=== PATIENT | male | born 1950 | race Caucasian/White ===

== ENCOUNTER 2024-12-18 08:32 | Emergency (ER) | payer MEDICARE, BC, SELFPAY ==
[2024-12-18 08:39] VITALS: BP 204/87
[2024-12-18 10:10] VITALS: BP 172/86
--- NOTE | 2024-12-18 17:34 | ED.GENMED ---
History of Present Illness
General
Chief Complaint: Back Pain
Source: patient
Exam Limitations: none
Time Seen by Provider: 12/18/24 09:08
Nursing documentation reviewed up to this point in time: agreed with
History of Present Illness
History of Present Illness:
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 Denies loss of bowel or bladder control. Denies fever/chills.
Denies abdominal pain. Denies weakness in extremities. 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 Otherwise, no recollection of overuse or injury.
Motrin was helping until last p.m. when he woke up in middle of night with the pain after taking Motrin at 10:30 p.m. and 2:30 a.m.
Past History
Past History
ED Past Medical History: Other (GERD, hypercholesterolemia, hypertension, prostate cancer)
Social History
Tobacco: Non-smoker
Personal:
Review of Systems
Review of Systems
Allergies reviewed?: Yes
All Other Systems: ROS reviewed and negative except as documented in HPI and ROS
Constitutional: Denies fever or chills
ABD/GI: Denies abdominal pain
: Denies dysuria, frequency, incontinence or difficulty voiding
Musculoskeletal: Reports back pain (right lower back); Denies neck pain
Skin: Reports no symptoms
Neurological: Reports other (low back pain radiates around right upper thigh); Denies weakness or numbness
Phy Exam
Physical Exam
Physical Exam:
GENERAL: No acute distress. A&Ox3.
CONSTITUTIONAL: Afebrile.
EYES: clear, conjunctivae normal
ENMT: moist mucus membranes
RESPIRATORY: Regular respirations, nonlabored, lungs clear.
CARDIOVASCULAR: Regular rate and rhythm, no murmurs, no rubs.
GI: Soft, nontender, normal BS
MUSCULOSKELETAL: No spinal bony tenderness. Mild pain with palpation mid right buttock. Pain mildly aggravated with adduction and abduction with right knee flexed. Negative bilateral straight leg raise. Moves with ease. Well perfused.
SKIN: Warm, dry, pink
PSYCH: Normal mood and affect. Well kept, interactive and appropriate
NEUROLOGIC: Awake, alert and oriented. Strength equal throughout. No focal neurological deficits
Course
Orders/Labs/Results
Orders:
Orders
12/18/24 09:51
Dexamethasone [Decadron] 10 mg PO NOW STA
Vital Signs
Initial and Last Documented VS:
Initial Vital Signs
Temp Pulse Resp BP Pulse Ox
98.2 F 57 16 204/87 98
12/18/24 08:39 12/18/24 08:39 12/18/24 08:39 12/18/24 08:39 12/18/24 08:39
Last Documented Vital Signs
Temp Pulse Resp BP Pulse Ox
98.2 F 57 17 172/86 97
12/18/24 08:39 12/18/24 10:10 12/18/24 10:10 12/18/24 10:10 12/18/24 10:10
MDM/Problems Addressed
Differential Diagnosis Includes:
low back strain, sciatica, discitis
MDM/Problems Addressed:
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 Denies loss of bowel or bladder control. Denies fever/chills.
Denies abdominal pain. Denies weakness in extremities. 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 Otherwise, no recollection of overuse or injury.
Motrin was helping until last p.m. when he woke up in middle of night with the pain after taking Motrin at 10:30 p.m. and 2:30 a.m.
Pain now 02/28.
Pt in no distress, is actually moving around very well.
No infectious symptoms
Pt OOB and ambulating well, no spinal bony tenderness, no neuro deficits, no indication for imaging
Plan: Steroid taper, muscle relaxant and f/u with PCP
At discharge, patient ambulated out with normal gait.
*Critical Care Note
Total Time (30-74mins, 75-104mins- exclusive of procedures): Not Applicable
ED Attending Note
-
Portions of this chart may have been created with voice recognition software.� Occasional wrong word or��sound alike� substitutions may have occurred due to the inherent limitations of voice recognition software.
Discharge Plan
Departure
Patient Disposition: Home (Routine Discharge)
Date of Disposition: 12/18/24
Time of Disposition: 09:52
Patient with high blood pressure during this ER visit?: Yes
Condition: Good
Discharge Problem:
Acute right-sided low back pain with right-sided sciatica
Instructions: Sciatica (DC)
Prescriptions:
New
prednisone 10 mg Tablet
See Rx Instructions .ROUTE .COMPLEX Qty: 30 0RF
Rx Instructions:
Take By Mouth:
40 mg daily x3 days, 30 mg daily x3 days,
20 mg daily x3 days, 10 mg daily x3 days.
cyclobenzaprine 10 mg tablet
10 mg PO BID MDD back pain/spasm PRN (Reason: back pain/spasm) Qty: 14 0RF
No Action
Atorvastatin
10 mg PO HS
latanoprost 1 DROP drops
1 drp BOTH EYES HS
Patient Comments:
0.005%
famotidine 40 MG tablet
40 mg PO HS
ibuprofen 200 MG tablet
400 mg PO HS
Metoprolol Tartrate
12.5 mg PO BID
Patient Comments:
half of a 25mg tab
Tamsulosin
0.8 mg PO DAILY
Patient Comments:
two 0.4mg tabs half hour after evening meal
ofloxacin 1 DROP drops
5 drp ophthalmic (eye) BID
triamcinolone acetonide [Nasacort] 10.8 ML aerosol,spray
10.8 ml NS DAILY
loratadine 10 MG capsule
10 mg PO DAILY
meclizine 25 MG tablet
25 mg PO TID PRN (Reason: dizziness) Qty: 20 0RF
ondansetron 4 MG tablet,disintegrating
4 mg PO TIDPRN PRN (Reason: nausea/vomiting) Qty: 14 0RF
Referrals:
Cristhian Reed MD [Family Provider] - As needed
Activity Restrictions/Additional Instructions:
As we discussed, I sent a prescription to your pharmacy for Flexeril(cyclobenzaprine) muscle relaxant. It can make you sleepy and slow the reflexes so do not drive or operate any machinery within 8 hours of taking it.
I also sent a prescription to your pharmacy for a prednisone taper, started tomorrow as you were given a dose of steroid here today
See your family doctor or your orthopedic doctor if your back is not much improved within the next week.
Interventions
Interventions:
*Risk Screen - Suicide Last Done: 12/18/24 08:39
*General Assessment Last Done: 12/18/24 10:15
*Neglect/Abuse Screening Last Done: 12/18/24 08:39
*ED- Fall Risk Assessment Last Done: 12/18/24 10:15
ED-Musculoskeletal Assessment Last Done: 12/18/24 10:27
Discharge Date and Time
Discharge Date/Time: 12/18/24 10:30
Print Language: MONEGASQUE
== END 2024-12-18 10:30 | disposition home or self-care (01) ==
LOC: EMR 08:32
PROVIDERS: EMERGENCY PHYSICIAN Emergency Medicine; FAMILY PHYSICIAN Family Medicine
DX: M54.41 Lumbago with sciatica, right side (principal); E78.00 Pure hypercholesterolemia, unspecified; I10 Essential (primary) hypertension; Z85.46 Personal history of malignant neoplasm of prostate
CPT/HCPCS: 99282

== ENCOUNTER 2025-02-27 15:53 | Emergency (ER) | payer MEDICARE, BC, SELFPAY ==
[2025-02-27 16:02] VITALS: BP 169/86
--- NOTE | 2025-02-27 17:34 | ED.GENMED ---
History of Present Illness
General
Chief Complaint: Fall
Source: patient
Exam Limitations: none
Time Seen by Provider: 02/27/25 17:20
History of Present Illness
History of Present Illness:
Patient tripped 3 days ago. Complaining of right leg pain. Mostly right ankle. Had worn a splint he had at home. Caused a blister to the posterior leg.
Past History
Past History
ED Past Medical History: Other (GERD, hypercholesterolemia, hypertension, prostate cancer)
Social History
Tobacco: Non-smoker
Personal:
Review of Systems
Review of Systems
All Other Systems: Not applicable
Phy Exam
Physical Exam
Physical Exam:
General: Nontoxic appearing in no distress
Skin: Warm and dry, no rash
Neuro: Alert, nontoxic, grossly nonfocal
Psychiatric: Good eye contact and appropriate
Musculoskeletal: Right knee with mild tenderness medially. Clinically stable. Able to straight leg raise. No laxity. Right calf normal. Moderate swelling to both legs chronically. Ecchymosis and swelling to the right ankle tender medial and
laterally. Achilles intact. Motor or sensory neurovascular intact
Course
Orders/Labs/Results
Orders:
Orders
02/27/25 16:05
CR Ankle - Right Min 3 Views * Urgent
Comment:
Reason For Exam: fall on thursday, right ankle injury
Knee, Right 4 or More Views [CR Knee- Right 4 Or More View*] Urgent
Comment:
Reason For Exam: fall on thursday, right knee pain
02/27/25 17:45
Crutches-Treatment ONCE
Short Leg Right-Treatment ONCE
Vital Signs
Initial and Last Documented VS:
Initial Vital Signs
Temp Pulse Resp BP Pulse Ox
98.5 F 71 18 169/86 96
02/27/25 16:02 02/27/25 16:02 02/27/25 16:02 02/27/25 16:02 02/27/25 16:02
Last Documented Vital Signs
Temp Pulse Resp BP Pulse Ox
98.5 F 71 18 169/86 96
02/27/25 16:02 02/27/25 16:02 02/27/25 16:02 02/27/25 16:02 02/27/25 16:02
*Radiology
Radiology exam reviewed: preliminary read by ED provider (Knee strain. Distal fibula fracture okay okay)
*Pulse Oximetry
Patient hypoxic: no (96%)
*Critical Care Note
Total Time (30-74mins, 75-104mins- exclusive of procedures): Not Applicable
Update Note
Update Note:
Discussed with orthopedics splint crutches and follow-up.
Patient unable to tolerate crutches. Will change to boot and follow-up. Orthopedics was okay with a
ED Attending Note
-
Portions of this chart may have been created with voice recognition software.� Occasional wrong word or��sound alike� substitutions may have occurred due to the inherent limitations of voice recognition software.
Discharge Plan
Departure
Patient Disposition: Home (Routine Discharge)
Date of Disposition: 02/27/25
Time of Disposition: 17:48
Patient with high blood pressure during this ER visit?: Yes
Discharge Problem:
Right fibular fracture, Right knee sprain
Instructions: Ankle Fracture ED, Knee Sprain ED, BLOOD PRESSURE
Prescriptions:
No Action
Atorvastatin
10 mg PO HS
latanoprost 1 DROP drops
1 drp BOTH EYES HS
Patient Comments:
0.005%
famotidine 40 MG tablet
40 mg PO HS
ibuprofen 200 MG tablet
400 mg PO HS
Metoprolol Tartrate
12.5 mg PO BID
Patient Comments:
half of a 25mg tab
Tamsulosin
0.8 mg PO DAILY
Patient Comments:
two 0.4mg tabs half hour after evening meal
ofloxacin 1 DROP drops
5 drp ophthalmic (eye) BID
triamcinolone acetonide [Nasacort] 10.8 ML aerosol,spray
10.8 ml NS DAILY
loratadine 10 MG capsule
10 mg PO DAILY
meclizine 25 MG tablet
25 mg PO TID PRN (Reason: dizziness) Qty: 20 0RF
ondansetron 4 MG tablet,disintegrating
4 mg PO TIDPRN PRN (Reason: nausea/vomiting) Qty: 14 0RF
prednisone 10 mg Tablet
See Rx Instructions .ROUTE .COMPLEX Qty: 30 0RF
Rx Instructions:
Take By Mouth:
40 mg daily x3 days, 30 mg daily x3 days,
20 mg daily x3 days, 10 mg daily x3 days.
cyclobenzaprine 10 mg tablet
10 mg PO BID MDD back pain/spasm PRN (Reason: back pain/spasm) Qty: 14 0RF
Referrals:
Jerry Pal MD [Active, Orthopedics] - Follow up in 2-3 days
Cristhian Reed MD [Family Provider, Family Practice]
Activity Restrictions/Additional Instructions:
Try to elevate the leg to decrease swelling
Call the orthopedist first thing in the morning for follow-up in the next few days
Watch the blister for secondary infection
Interventions
Interventions:
*Risk Screen - Suicide Last Done: 02/27/25 16:02
*General Assessment Last Done: 02/27/25 16:02
*Neglect/Abuse Screening Last Done: 02/27/25 16:02
*Nursing Disposition Last Done: 02/27/25 18:58
ED-Musculoskeletal Assessment Last Done: 02/27/25 17:35
ED- Neurological Assessment Last Done: 02/27/25 17:35
ED-Skin Assessment Last Done: 02/27/25 17:35
Discharge Date and Time
Discharge Date/Time: 02/27/25 18:58
Print Language: ITALIAN
== END 2025-02-27 18:58 | disposition home or self-care (01) ==
LOC: EMR 15:53
PROVIDERS: EMERGENCY PHYSICIAN Emergency Medicine; FAMILY PHYSICIAN Family Medicine
DX: S82.831A Other fracture of upper and lower end of right fibula, initial encounter for closed fracture (principal); S83.91XA Sprain of unspecified site of right knee, initial encounter; W01.0XXA Fall on same level from slipping, tripping and stumbling without subsequent striking against object, initial encounter; E78.00 Pure hypercholesterolemia, unspecified; I10 Essential (primary) hypertension
CPT/HCPCS: 29515; 99283; 73564; 73610

== ENCOUNTER 2025-03-07 06:23 | Day surgery (SDC) | payer MEDICARE, BC, SELFPAY ==
[2025-03-07] VITALS (10 sets, daily range): BP systolic 126–179; BP diastolic 72–96; BMI 33.9
[2025-03-07 09:01] LABS: Glucose - Point of Care 107 mg/dl (70-99)
--- NOTE | 2025-03-07 11:19 | OR.RPT ---
Operative Report
Operative Report
Date
03/07/2025
Anesthesia Type:
General With peripheral block
Operative Indications:
Unstable lateral malleolus fracture right ankle
Operative Findings :
Oblique lateral malleolus fracture, stable syndesmosis after fixation
Complications:
None
Implants:
Eliza anatomic lateral malleolus locking plate
Procedure and Technique:
Open reduction internal fixation right lateral malleolus fracture
INDICATIONS FOR PROCEDURE:
Patient is an active 74-year-old male sustained mechanical fall was ultimately diagnosed with a displaced right lateral malleolus fracture. He was seen in the office for physician assisted stress radiographs were performed with some concern for
medial joint space widening. Discussed postsurgical nonsurgical options. Ultimately patient elected proceed with surgical intervention. We discussed risks benefits and alternatives to surgery. We discussed the usual expected perioperative and
postoperative course. After discussion written informed consent was obtained
OPERATIVE PROCEDURE:
Patient was seen identified in preoperative holding area. Operative extremities marked. All questions were addressed and answered. He was taken to the operating room after peripheral block was performed. General anesthesia was then administered.
Operative extremity was prepped and draped in the normal sterile fashion. Nonsterile tourniquet was applied. A timeout was performed again identifying the correct operative extremity. Preoperative antibiotics were addressed. Standard lateral
approach to the ankle was performed. Sharp dissection was carried through skin subcutaneous tissues. Blunt dissection was carried down to the bone. Careful attention was paid to protect all neurovascular structures. Fracture was identified.
Enveloped periosteum and hematoma at the fracture site were excised. Reduction was performed. A 3.5 millimeter screw was placed across the fracture site in a lag by technique fashion. Neutralization plate was then placed. This was confirmed to
be in appropriate position orthogonal imaging. Bicortical fixation was achieved proximally. Unicortical locking screws were placed distally. 2 additional bicortical nonlocking screws were placed proximally. External stress radiographs were then
performed and there was no notable syndesmotic widening or medial joint space widening. Satisfied with extent surgery wound was copiously irrigated normal saline solution. Wound was closed in layered fashion utilizing #1 Vicryl deep fascial layer,
2-0 Vicryl for subcutaneous layer 3-0 nylon for skin. Prior to closure tourniquet was deflated hemostasis was achieved electrocautery. This sterile dressings were applied consisting of Xeroform, 4 x 4 gauze, ABD Webril. Patient was placed in a
well-padded AO splint short leg by myself with ankle held in neutral position. Anesthesia was reversed and patient was taken to PACU in stable condition. Postoperative plans include nonweightbearing to the operative extremity. I did have a
lengthy discussion with both the patient and his regarding DVT prophylaxis. I explained to them that there is no current official guidelines that recommend DVT prophylaxis. I explained that I typically place patient on 81 mg aspirin daily.
However patient does have an allergy to aspirin. We did discuss anticoagulation but they are concerned about bleeding risk with falls. Therefore we mutually decided to proceed without any anticoagulation or antiplatelet therapy the postoperative
setting. Plan to see patient back 2 weeks postop.
Disposition:
PACU stable condition
[2025-03-07 11:35] LABS: Glucose - Point of Care 117 mg/dl (70-99)
== END 2025-03-07 12:47 | disposition home or self-care (01) ==
LOC: SDS 06:23
PROVIDERS: ATTENDING PHYSICIAN Orthopaedic Surgery
DX: S82.61XA Displaced fracture of lateral malleolus of right fibula, initial encounter for closed fracture (principal); W19.XXXA Unspecified fall, initial encounter
CPT/HCPCS: 27792; C1713; 73600; 76000; 82962

== ENCOUNTER 2025-05-17 06:29 | Day surgery (SDC) | payer MEDICARE, BC, SELFPAY | END 2025-05-17 10:15 | disposition home or self-care (01) | LOC: GI 06:29 | PROVIDERS: ATTENDING PHYSICIAN Specialist | DX: Z12.11 Encounter for screening for malignant neoplasm of colon (principal); K63.5 Polyp of colon; K57.30 Diverticulosis of large intestine without perforation or abscess without bleeding; K62.1 Rectal polyp | CPT/HCPCS: 45380; 88305 ==